=== PATIENT | female | born 1955 | race Asian ===

== ENCOUNTER 2018-04-09 12:09 | Emergency (ER) | payer OTHER ==
[~2018-04-09] VITALS: Ht 154.9 cm; Wt 54.4 kg
[2018-04-09] MEDS ORDERED: NKM (12:19)
[2018-04-09 12:56] VITALS: BP 146/94
--- NOTE | 2018-04-09 13:16 | Diagnostic Imaging Report ---
EXAM: XR Sacrum and Coccyx, 2 or more Views CLINICAL HISTORY: PAIN TECHNIQUE: Frontal and lateral views of the sacrum and coccyx. COMPARISON: No relevant prior studies available. 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 No visible acute displaced fracture. Vertebrae: As above. Otherwise, the visualized lumbar vertebrae are unremarkable. Soft tissues: Unremarkable. IMPRESSION: Anatomic variant transitional vertebrae at the lumbosacral junction which may represent a partially sacralized L5 versus partially lumbarized S1. This vertebra has a right transverse process however on the left there is a sacral pseudoarticulation, which could be a source of pain related to chronic arthrosis.
--- NOTE | 2018-04-09 13:32 | Emergency Room Report ---
History of Present Illness General Chief Complaint: Lower Back Pain or Injury Source: Patient Present Illness HPI 63 YO Female presents to the ED C/O 04/07 in severity midline coccyx tenderness after slipping off of two boxes she was sitting on and falling to the ground landing on her coccyx. pt. reports tenderness with palpation, exacerbation with sitting. denies hitting her head or LOC. Denies neck or back pain otherwise. Denies numbness tingling or loss of sensation or gross motor movements of the extremities, incontinence of bowel or bladder. Denies CP, Palpitations, LOC, AMS , dizziness, Changes in Vision, Sensation, paresthesias, or a sudden severe headache. Allergies: Coded Allergies: No Known Allergies (Unverified , 04/09/18) Patient History Past Medical History: see triage record Past Surgical History: none Pertinent Family History: none Now: No Reviewed Nursing Documentation: PMH: Agreed; PSxH: Agreed Nursing Documentation-PMH Past Medical History: No Stated History Review of Systems All Other Systems: negative except mentioned in HPI Physical Exam Vital Signs Date Time Temp Pulse Resp B/P (MAP) Pulse Ox O2 Delivery O2 Flow Rate FiO2 04/09/18 12:14 98.2 77 16 146/94 95 Room Air 98.2 Sp02 EP Interpretation: reviewed, normal General Appearance: no apparent distress, alert, GCS 15, non-toxic Head: normocephalic, atraumatic Eyes: bilateral eye normal inspection, bilateral eye PERRL ENT: hearing grossly normal, normal voice Neck: full range of motion Respiratory: chest non-tender, lungs clear, normal breath sounds, speaking full sentences Cardiovascular #1: regular rate, rhythm Gastrointestinal: non tender, soft Genitourinary: normal inspection, no CVA tenderness Musculoskeletal: back normal, gait/station normal, normal range of motion, tender - TTP on the distal coccyx, no paraspinal pain, midline pain only, no bruises Neurologic: alert, oriented x3, responsive, motor strength/tone normal, sensory intact, speech normal, grossly normal Psychiatric: judgement/insight normal Skin: normal color, no rash, warm/dry, well hydrated Medical Decision Making PA Attestation Dr. Higgins is my supervising Physician whom patient management has been discussed with. Diagnostic Impression: Primary Impression: Coccyx contusion Qualified Codes: S30.0XXA - Contusion of lower back and pelvis, initial encounter ER Course 63 YO Female presents to the ED C/O 5/10 in severity midline coccyx tenderness after slipping off of two boxes she was sitting on and falling to the ground landing on her coccyx. pt. reports tenderness with palpation, exacerbation with sitting. denies hitting her head or LOC. Denies neck or back pain otherwise. Denies numbness tingling or loss of sensation or gross motor movements of the extremities, incontinence of bowel or bladder. Denies CP, Palpitations, LOC, AMS , dizziness, Changes in Vision, Sensation, paresthesias, or a sudden severe headache. Ddx considered but are not limited to Fracture, dislocation, contusion, Sprain/ Strain/Spasm. Vital signs: are WNL, pt. is afebrile H&PE are most consistent with musculoskeletal injury will perform imaging to r/ o fractures/dislocations. ORDERS: - X-ray sacral coccyx 3 views - negative for fx, Dislocation, or significant soft tissue injury, per preliminary read in ED, and signed by NIECY Wilkins, my supervising physician has reviewed, and agrees with my interpretation. ED INTERVENTIONS: - None required at this time. d/w pt. the results of her imaging. DISCHARGE: At this time pt. is stable for d/c to home. Will provide printed patient care instructions, and any necessary prescriptions. Care plan and follow up instructions have been discussed with the patient prior to discharge. Other X-Ray Diagnostic Results Other X-Ray Diagnostic Results : X-Ray ordered: sacrum-coccyx # of Views/Limited Vs Complete: 3 View Indication: Pain EP Interpretation: Yes NIECY Xray: Interpretation reviewed, by supervising MD, and agrees with findings. Interpretation: no dislocation, no soft tissue swelling, no fractures Impression: No acute disease Electronically Signed by: Roberta Wilkins PA-C Last Vital Signs Date Time Temp Pulse Resp B/P (MAP) Pulse Ox O2 Delivery O2 Flow Rate FiO2 04/09/18 12:56 98.2 16 146/94 95 Room Air 98.2 04/09/18 12:14 77 Disposition: HOME, SELF-CARE Condition: Stable Scripts Lidocaine (Lidoderm) 1 Each Adh..patch 1 PATCH TOPIC DAILY, #30 PATCH 0 Refills Patch(es) may remain in place for up to 12 hours in any 24-hour period. Prov: Roberta Wilkins 04/09/18 Acetaminophen* (TYLENOL EXTRA STRENGTH*) 500 Mg Tablet 500 MG ORAL Q6H PRN for Mild Pain/Temp > 100.5, #20 TAB 0 Refills Prov: Roberta Wilkins 04/09/18 Referrals: NOT CHOSEN IPA/MD,REFERRING (PCP) Departure Forms: Return to Work Return to Work Date: April 13, 2018 Work Restrictions: None Return to Full Activity: April 13, 2018 Patient Instructions: Contusion, Fhfi-ey-Iomy Additional Instructions: Take medications as directed. Follow up with a Primary Care Provider in 3-5 days, even if your symptoms have resolved. --Please review list of primary care clinics, if you do not already have a primary care provider Return sooner to ED if new symptoms occur, or current symptoms become worse. - Please note that this Emergency Department Report was dictated using [employer] software, occasionally this can lead to erroneous entry secondary to interpretation by the dictation equipment. Roberta Wilkins April 09, 2018 13:32
[2018-04-09] MEDS ORDERED: TYLENOL EXTRA500 MG ORAL (13:40)
[2018-04-09] MEDS ORDERED: LIDODERM700 M1 TOPIC (13:40)
[2018-04-09 13:56] VITALS: BP 146/94
== END 2018-04-09 14:15 | disposition home or self-care (01) ==
LOC: EMR 12:30
DX: S30.0XXA Contusion of lower back and pelvis, initial encounter (principal); W01.198A Fall on same level from slipping, tripping and stumbling with subsequent striking against other object, initial encounter; Y92.210 Daycare center as the place of occurrence of the external cause; Y99.0 Civilian activity done for income or pay
CPT/HCPCS: 72220; 99284